=== PATIENT | male | born 2000 | race Caucasian/White ===

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

== ENCOUNTER → 2018-01-08 13:01 | Emergency (ER) | payer SELFPAY ==
--- NOTE | 2018-01-08 13:47 | ED ---
Psychiatric Complaint - HPI Summary HPI Summary: This patient is a 17 year old M presenting to [facility] with a chief complaint of bizarre behavior since just [employer]. Was standing in the middle of the road near [facility], drinking soda, hanging out, he always does that, every day. States it is not thrill seeking. 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 Denies SI, HI, Im not like that. Smokes marijuana, cigarettes, denies street drugs. Pt drank 1 [employer], not heavy on drinking. He endorses hallucinations at times, but none right now. Endorses paranoid delusions. - History Of Current Complaint Chief Complaint: EDMentalHealth Time Seen by Provider: 01/08/18 13:37 Hx Obtained From: Patient Onset/Duration: Sudden Onset Timing: Constant Severity Initially: Moderate Severity Currently: Mild Character: Manic Aggravating Factor(s): Nothing Alleviating Factor(s): Nothing Associated Signs And Symptoms: Positive: Confused Related History: Positive For: Prior Psychiatric Issues Has Suicidal: Denies: Thoughts - Allergies/Home Medications Allergies/Adverse Reactions: Allergies Allergy/AdvReac Type Severity Reaction Status Date / Time No Known Allergies Allergy Verified 12/17/15 12:42 PMH/Surg Hx/FS Hx/Imm Hx Endocrine/Hematology History: Denies: Hx Diabetes Cardiovascular History: Denies: Hx Hypertension, Hx Pacemaker/ICD, Hx Valvular Heart Disease Sensory History: Reports: Hx Contacts or Glasses, Hx Vision Problem - patient reports nystagmus Denies: Hx Cataracts, Hx Deafness, Hx Hearing Aid, Hx Hearing Problem Opthamlomology History: Reports: Hx Contacts or Glasses, Hx Vision Problem - patient reports nystagmus Denies: Hx Cataracts EENT History: Denies: Hx Deafness Neurological History: Reports: Hx Headaches, Other Neuro Impairments/Disorders - Hx concussion Psychiatric History: Reports: Hx Anxiety, Hx Depression, Hx Panic Disorder - ANXIETY, Hx Post Traumatic Stress Disorder, Hx Community Mental Health Tx, Hx of Violent Episodes Against Others Denies: Hx Attention Deficit Hyperactivity Disorder, Hx Eating Disorder, Hx Inpatient Treatment, Hx Schizophrenia, Hx Bipolar Disorder, Hx Suicide Attempt, Hx Substance Abuse, Other Psychiatric Issues/Disorders - Surgical History Surgery Procedure, Year, and Place: none Infectious Disease History: No Infectious Disease History: Denies: Traveled Outside the [place] in Last 30 Days - Family History Known Family History: Positive: None, Other - Pancreatic cancer Father Negative: Hypertension, Diabetes - Social History Alcohol Use: Occasionally Hx Substance Use: Yes Substance Use Type: Reports: Marijuana Hx Tobacco Use: Yes Smoking Status (MU): Current Some Day Smoker Type: Cigarettes Have You Smoked in the Last Year: No Review of Systems Negative: Fever Psychological: Other - hallucinations, poor insight, latencies Negative: Other - SI, HI All Other Systems Reviewed And Are Negative: Yes Physical Exam - Summary Physical Exam Summary: Appearance: Well appearing, no pain distress Skin: warm, dry, reflects adequate perfusion Head/face: normal Eyes: EOMI, ANDREW ENT: normal Neck: supple, non-tender Respiratory: CTA, breath sounds present Cardiovascular: RRR, pulses symmetrical Abdomen: non-tender, soft Bowel Sounds: present Musculoskeletal: normal, strength/ROM intact Neuro: sensory motor intact, A&Ox3, Poor insight, poor judgement, detachment, latencies, tangential thinking Triage Information Reviewed: Yes Vital Signs Reviewed: Yes Diagnostics - Laboratory Result Diagrams: 01/08/18 13:56 01/08/18 13:56 Lab Statement: Any lab studies that have been ordered have been reviewed, and results considered in the medical decision making process. - EKG 1413 Cardiac Rate: Bradycardia - 52 EKG Rhythm: Sinus Bradycardia ST Segment: Normal EKG Interpretation: Short UT, no delta wave, nl axis, artifact in leads II, III Course/Dx - Course Course Of Treatment: Patient noted to have significant latencies and a bizarre affect on exam. Medical evaluation was performed including laboratories and found to be stable for mental health evaluation. Crisis evaluation was initiated and it was elected the patient be held over. He was signed out to the oncoming ER physician in stable condition. - Differential Dx/Clinical Impression Provider Diagnosis: Mood disorder Discharge - Sign-Out/Discharge Documenting (check all that apply): Sign-Out Patient Signing out patient TO: Landon Méndez - psych hold - Discharge Plan Condition: Stable Referrals: No Primary Care Phys,NOPCP [Primary Care Provider] - - Billing Disposition and Condition Condition: STABLE
[2018-01-08 14:23] LABS: ABS Basophils 0 10^3/ul (0-0.2); ABS Eosinophils 0 10^3/ul (0-0.6); ABS Lymphocytes 1.5 10^3/ul (1.0-4.8); ABS Monocytes 0.4 10^3/ul (0-0.8); ABS Neutrophils 4.6 10^3/ul (1.5-7.7); ABS Nucleated RBC 0 10^3/ul; Eosinophil % 0.7 % (0-6); Hematocrit 43 % (42-52); Hemoglobin 14.8 g/dl (14.0-18.0); Lymphocyte % 23.1 % (25-47); Mean Corpuscular HGB Conc 34 g/dl (31-36); Mean Corpuscular Hemoglobin 31 pg (27-31); Mean Corpuscular Volume 91 fL (80-94); Mean Platelet Volume 8.7 um3 (7.4-10.4); Nucleated Red Blood Cells % 0.1; Platelet Count 199 10^3/ul (150-450); Red Blood Count 4.79 10^6/ul (4.00-5.40); Red Cell Distribution Width 13 % (10.5-15); White Blood Count 6.7 10^3/ul (3.5-10.8)
[2018-01-08 14:41] LABS: EGFR Non-African American 117.7 (>60)
[2018-01-08 14:56] LABS: Urine Appearance Clear; Urine Blood Negative (Negative); Urine Color Yellow; Urine Ketones Negative (Negative); Urine Protein Negative (Negative); Urine Specific Gravity 1.025 (1.010-1.030); Urine Urobilinogen Negative (Negative)
--- NOTE | 2018-01-09 08:45 | PN ---
ED Flex Patient Progress Note Date of Service: 01/08/18 Subjective: This is a 17 year-old M who is pending admission to [facility] / transfer to another psychiatric facility / discharge to home / or being observed secondary to mood disorder. Pt. examined in F3 around 0820. He is pacing around room, watching TV. He states he is eating and sleeping well. Offers no complaints. Objective: Vitals: Most recent vital signs documented below. General NAD,. Laboratory: Current laboratory results documented below. Assessment: Pending placement, our BHU is full. Plan: Pending psychiatric or medical consultation to observe / transfer / admit / discharge will follow up daily . Vital Signs Temp Pulse Resp BP Pulse Ox 97.9 F 58 16 108/69 100 01/09/18 08:25 01/09/18 08:25 01/09/18 08:25 01/09/18 08:25 01/09/18 08:25 Lab Results - Entire Visit 01/08/18 01/08/18 01/08/18 14:31 14:31 13:56 WBC RBC Hgb Hct MCV MCH MCHC RDW Plt Count MPV Neut % (Auto) Lymph % (Auto) Gem % (Auto) Eos % (Auto) Baso % (Auto) Absolute Neuts (auto) Absolute Lymphs (auto) Absolute Monos (auto) Absolute Eos (auto) Absolute Basos (auto) Absolute Nucleated RBC Nucleated RBC % Sodium 141 Potassium 4.0 Chloride 108 Carbon Dioxide 26 Anion Gap 7 BUN 15 Creatinine 0.84 Est GFR ( Amer) 142.4 Est GFR (Non-Af Amer) 117.7 BUN/Creatinine Ratio 17.9 Glucose 85 Calcium 9.5 Total Bilirubin 0.70 AST 24 ALT 17 Alkaline Phosphatase 148 H Total Creatine Kinase 193 Total Protein 6.6 Albumin 4.3 Globulin 2.3 Albumin/Globulin Ratio 1.9 TSH 0.55 Urine Color Yellow Urine Appearance Clear Urine pH 6.0 Ur Specific Wittman 1.025 Urine Protein Negative Urine Ketones Negative Urine Blood Negative Urine Nitrate Negative Urine Bilirubin Negative Urine Urobilinogen Negative Ur Leukocyte Esterase Negative Urine Glucose Negative Salicylates < 2.50 Urine Opiates Screen None detected Acetaminophen < 15 Ur Barbiturates Screen None detected Ur Phencyclidine Scrn None detected Ur Amphetamines Screen None detected U Benzodiazepines Scrn None detected Urine Cocaine Screen None detected U Cannabinoids Screen Presumptive positive A Serum Alcohol < 10 01/08/18 13:56 WBC 6.7 RBC 4.79 Hgb 14.8 Hct 43 MCV 91 MCH 31 MCHC 34 RDW 13 Plt Count 199 MPV 8.7 Neut % (Auto) 69.2 Lymph % (Auto) 23.1 L Gem % (Auto) 6.4 Eos % (Auto) 0.7 Baso % (Auto) 0.6 Absolute Neuts (auto) 4.6 Absolute Lymphs (auto) 1.5 Absolute Monos (auto) 0.4 Absolute Eos (auto) 0 Absolute Basos (auto) 0 Absolute Nucleated RBC 0 Nucleated RBC % 0.1 Sodium Potassium Chloride Carbon Dioxide Anion Gap BUN Creatinine Est GFR ( Amer) Est GFR (Non-Af Amer) BUN/Creatinine Ratio Glucose Calcium Total Bilirubin AST ALT Alkaline Phosphatase Total Creatine Kinase Total Protein Albumin Globulin Albumin/Globulin Ratio TSH Urine Color Urine Appearance Urine pH Ur Specific Wittman Urine Protein Urine Ketones Urine Blood Urine Nitrate Urine Bilirubin Urine Urobilinogen Ur Leukocyte Esterase Urine Glucose Salicylates Urine Opiates Screen Acetaminophen Ur Barbiturates Screen Ur Phencyclidine Scrn Ur Amphetamines Screen U Benzodiazepines Scrn Urine Cocaine Screen U Cannabinoids Screen Serum Alcohol
--- NOTE | 2018-01-09 10:55 | ED ---
Progress - Progress Note Progress Note: This pt was signed out by Dr. Méndez awaiting diagnosis and disposition. The mental health evaluation was performed by Dr. Chen who deemed the pt stable to be discharged home with a Dx of depressive disorder - Consult/PCP Time Called: 15:15 Course/Dx - Course Course Of Treatment: Patient noted to have significant latencies and a bizarre affect on exam. Medical evaluation was performed including laboratories and found to be stable for mental health evaluation. Crisis evaluation was initiated and it was elected the patient be held over. He was signed out to the [facility] ER physician in stable condition. - Diagnoses Provider Diagnoses: Depressive disorder, Mood disorder Discharge - Sign-Out/Discharge Documenting (check all that apply): Patient Departure - Discharge - Discharge Plan Condition: Stable Disposition: HOME Patient Education Materials: Depression (ED) Referrals: No Primary Care Phys,NOPCP [Primary Care Provider] - Additional Instructions: Per completion of a mental health evaluation, you are cleared for release and do not require inpatient psychiatric hospitalization at this time. Please go to nearest emergency room or call 911 if safety concerns arise or condition worsens. Important Phone Numbers: [facility] ph:[phone] Suicide Prevention and Crisis Services ph:[phone] National Suicide Prevention Lifeline ph:[phone]- ZHFO (5076) [facility] ph:[phone] Alcoholics Anonymous ph: [facility] ph:[phone] [employer] ph:[phone] Pt is to follow up Wednesday morning by calling [facility] at . Pt should return to ED if needed. Pt father is aware of the discharge and will provide support for patient in the community. - Billing Disposition and Condition Condition: STABLE Disposition: Home
[2018-01-09 11:41] VITALS: BP 119/57
== END | disposition home or self-care (01) ==
LOC: ED 13:01
DX: F39 Unspecified mood [affective] disorder (principal); R00.1 Bradycardia, unspecified; F17.210 Nicotine dependence, cigarettes, uncomplicated
CPT/HCPCS: 36415; 80053; 80307; 80320; 80329; 81003; 82550; 84443; 85025; 93005; 99284; G0480

== ENCOUNTER 2018-01-10 16:22 | Emergency (ER) | payer SELFPAY ==
[2018-01-10 17:11] LABS: ABS Basophils 0 10^3/ul (0-0.2); ABS Eosinophils 0 10^3/ul (0-0.6); ABS Lymphocytes 1.7 10^3/ul (1.0-4.8); ABS Monocytes 0.6 10^3/ul (0-0.8); ABS Neutrophils 4.5 10^3/ul (1.5-7.7); ABS Nucleated RBC 0 10^3/ul; Eosinophil % 0.4 % (0-6); Hematocrit 45 % (42-52); Hemoglobin 15.8 g/dl (14.0-18.0); Lymphocyte % 25.2 % (25-47); Mean Corpuscular HGB Conc 35 g/dl (31-36); Mean Corpuscular Hemoglobin 31 pg (27-31); Mean Corpuscular Volume 90 fL (80-94); Mean Platelet Volume 8.4 um3 (7.4-10.4); Nucleated Red Blood Cells % 0; Platelet Count 232 10^3/ul (150-450); Red Blood Count 5.03 10^6/ul (4.00-5.40); Red Cell Distribution Width 13 % (10.5-15); White Blood Count 6.9 10^3/ul (3.5-10.8)
[2018-01-10 17:28] LABS: EGFR Non-African American 98.5 (>60)
[2018-01-10] MEDS ORDERED: LORazepam TAB(*) 1 MG PO ONE (18:34)
--- NOTE | 2018-01-10 19:42 | ED ---
Psychiatric Complaint - HPI Summary HPI Summary: This is Marely Salazar, documenting for attending Fredy Muñoz MD. Pt is a 17 y/o M BIBA when he was found laying on the ground very paranoid. He believes there are people out to get him and kill him. He tried to jump over a ledge and scraped his abdomen. Was here in ED through the weekend when he was found standing in traffic outside of [facility]. He is not sure if he has been drinking alcohol. Used marijuana 2 days ago but cannot recall if he used it today. Claims to have been "hanging out with [employer]." - History Of Current Complaint Chief Complaint: EDMentalHealth Time Seen by Provider: 01/10/18 16:40 Hx Obtained From: Patient Onset/Duration: Lasting Days, Still Present Severity Currently: Mild - rated 2/10 pain during triage Associated Signs And Symptoms: Positive: Confused, Paranoid Behavior Related History: Positive For: Prior Psychiatric Issues - Allergies/Home Medications Allergies/Adverse Reactions: Allergies Allergy/AdvReac Type Severity Reaction Status Date / Time No Known Allergies Allergy Verified 01/08/18 20:24 PMH/Surg Hx/FS Hx/Imm Hx Endocrine/Hematology History: Denies: Hx Diabetes Cardiovascular History: Denies: Hx Hypertension, Hx Pacemaker/ICD, Hx Valvular Heart Disease Sensory History: Reports: Hx Contacts or Glasses, Hx Vision Problem - patient reports nystagmus Denies: Hx Cataracts, Hx Deafness, Hx Hearing Aid, Hx Hearing Problem Opthamlomology History: Reports: Hx Contacts or Glasses, Hx Vision Problem - patient reports nystagmus Denies: Hx Cataracts Neurological History: Reports: Hx Headaches, Other Neuro Impairments/Disorders - Hx concussion Psychiatric History: Reports: Hx Anxiety, Hx Depression, Hx Panic Disorder - ANXIETY, Hx Post Traumatic Stress Disorder, Hx Community Mental Health Tx, Hx of Violent Episodes Against Others Denies: Hx Attention Deficit Hyperactivity Disorder, Hx Eating Disorder, Hx Inpatient Treatment, Hx Schizophrenia, Hx Bipolar Disorder, Hx Suicide Attempt, Hx Substance Abuse, Other Psychiatric Issues/Disorders - Surgical History Surgery Procedure, Year, and Place: none Infectious Disease History: No Infectious Disease History: Denies: Traveled Outside the [place] in Last 30 Days - Family History Known Family History: Positive: Other - Pancreatic cancer Father Negative: Hypertension, Diabetes - Social History Alcohol Use: Occasionally Hx Substance Use: Yes Substance Use Type: Reports: Marijuana Hx Tobacco Use: Yes Smoking Status (MU): Current Some Day Smoker Type: Cigarettes Have You Smoked in the Last Year: No Review of Systems Positive: Other - Abrasion on abdomen Positive: Other - Paranoid All Other Systems Reviewed And Are Negative: Yes Physical Exam - Summary Physical Exam Summary: Appearance: Well appearing, no pain distress Skin: warm, dry, reflects adequate perfusion Head/face: normal Eyes: EOMI, ANDREW ENT: normal Neck: supple, non-tender Respiratory: CTA, breath sounds present Cardiovascular: RRR, pulses symmetrical Abdomen: soft, Abrasion on abdomen no abdominal tenderness Bowel Sounds: present Musculoskeletal: normal, strength/ROM intact Neuro: sensory motor intact, alert and oriented x3, mild MR, latencies Psych: paranoias Triage Information Reviewed: Yes Vital Signs On Initial Exam: Initial Vitals Temp Pulse Resp BP Pulse Ox 98.0 F 88 15 120/60 100 01/10/18 17:23 01/10/18 17:23 01/10/18 17:23 01/10/18 17:23 01/10/18 17:23 Vital Signs Reviewed: Yes Diagnostics - Vital Signs Vital Signs Temp Pulse Resp BP Pulse Ox 01/10/18 17:23 98.0 F 88 15 120/60 100 - Laboratory Lab Results: Lab Results 01/10/18 01/10/18 Range/Units 17:02 17:02 WBC 6.9 (3.5-10.8) 10^3/ul RBC 5.03 (4.00-5.40) 10^6/ul Hgb 15.8 (14.0-18.0) g/dl Hct 45 (42-52) % MCV 90 (80-94) fL MCH 31 (27-31) pg MCHC 35 (31-36) g/dl RDW 13 (10.5-15) % Plt Count 232 (150-450) 10^3/ul MPV 8.4 (7.4-10.4) um3 Neut % (Auto) 65.4 (38-83) % Lymph % (Auto) 25.2 (25-47) % Ritchie % (Auto) 8.4 H (0-7) % Eos % (Auto) 0.4 (0-6) % Baso % (Auto) 0.6 (0-2) % Absolute Neuts (auto) 4.5 (1.5-7.7) 10^3/ul Absolute Lymphs (auto) 1.7 (1.0-4.8) 10^3/ul Absolute Monos (auto) 0.6 (0-0.8) 10^3/ul Absolute Eos (auto) 0 (0-0.6) 10^3/ul Absolute Basos (auto) 0 (0-0.2) 10^3/ul Absolute Nucleated RBC 0 10^3/ul Nucleated RBC % 0 Sodium 139 (135-145) mmol/L Potassium 3.7 (3.5-5.0) mmol/L Chloride 104 (101-111) mmol/L Carbon Dioxide 24 (22-32) mmol/L Anion Gap 11 (2-11) mmol/L BUN 18 (6-24) mg/dL Creatinine 0.98 (0.67-1.17) mg/dL Est GFR ( Amer) 119.2 (>60) Est GFR (Non-Af Amer) 98.5 (>60) BUN/Creatinine Ratio 18.4 (8-20) Glucose 105 H (70-100) mg/dL Calcium 10.1 (8.6-10.3) mg/dL Total Bilirubin 1.40 H (0.2-1.0) mg/dL AST 28 (13-39) U/L ALT 19 (7-52) U/L Alkaline Phosphatase 126 H (34-104) U/L Total Protein 7.4 (6.4-8.9) g/dL Albumin 4.8 (3.2-5.2) g/dL Globulin 2.6 (2-4) g/dL Albumin/Globulin Ratio 1.8 (1-3) TSH 1.22 (0.34-5.60) mcIU/mL Salicylates < 2.50 (<30) mg/dL Acetaminophen < 15 mcg/mL Serum Alcohol < 10 (<10) mg/dL Result Diagrams: 01/10/18 17:02 01/10/18 17:02 Lab Statement: Any lab studies that have been ordered have been reviewed, and results considered in the medical decision making process. - EKG 1657 Cardiac Rate: NL - 71 bpm EKG Rhythm: Sinus Rhythm ST Segment: Normal EKG Interpretation: normal axis Course/Dx - Course Course Of Treatment: Patient was here through the weekend and was seen by mental health and cleared. He is now expressing paranoias as well as latencies noted previously. Concern for acute psychosis. Patient cleared for mental health evaluation is pending disposition by them. He is signed out to oncoming ER physician. - Differential Dx/Clinical Impression Provider Diagnosis: Acute psychosis Discharge - Sign-Out/Discharge Documenting (check all that apply): Sign-Out Patient Signing out patient TO: Landon Méndez - Discharge Plan Condition: Stable Referrals: Sharon Domínguez DO [Primary Care Provider] - - Billing Disposition and Condition Condition: STABLE
[2018-01-10 20:27] LABS: Urine Appearance Turbid; Urine Blood Negative (Negative); Urine Color Yellow; Urine Ketones Negative (Negative); Urine Protein Negative (Negative); Urine Specific Gravity 1.025 (1.010-1.030); Urine Urobilinogen Negative (Negative)
[2018-01-10 21:56] VITALS: BP 117/64
--- NOTE | 2018-01-11 05:13 | ED ---
Progress - Progress Note Progress Note: This is christel Lozoya documenting for attending physician Landon Méndez M.D. 2200: MHE consulted with Dr. Méndez, wanting to discharge Pt. Dr. Méndez agreed with plan to discharge. - Consult/PCP Time Called: 18:30 Course/Dx - Course Course Of Treatment: Patient was here through the weekend and was seen by mental health and cleared. He is now expressing paranoias as well as latencies noted previously. Concern for acute psychosis. Patient cleared for mental health evaluation is pending disposition by them. He is signed out to oncoming ER physician. - Diagnoses Provider Diagnoses: Acute psychosis Discharge - Sign-Out/Discharge Documenting (check all that apply): Patient Departure - Discharge Plan Condition: Stable Disposition: HOME Patient Education Materials: Mood Disorders (ED) Referrals: [facility] [Outside] Sharon Domínguez DO [Primary Care Provider] - - Billing Disposition and Condition Condition: STABLE Disposition: Home
== END 2018-01-10 22:02 | disposition home or self-care (01) ==
LOC: ED 16:22
DX: F29 Unspecified psychosis not due to a substance or known physiological condition (principal); F17.210 Nicotine dependence, cigarettes, uncomplicated
CPT/HCPCS: 36415; 80053; 80307; 80320; 80329; 81003; 84443; 85025; 93005; 99285; G0480

== ENCOUNTER 2018-01-16 08:43 | Emergency (ER) | payer SELFPAY ==
[2018-01-16 09:25] LABS: ABS Basophils 0.1 10^3/ul (0-0.2); ABS Eosinophils 0 10^3/ul (0-0.6); ABS Lymphocytes 1.6 10^3/ul (1.0-4.8); ABS Monocytes 0.3 10^3/ul (0-0.8); ABS Neutrophils 4.5 10^3/ul (1.5-7.7); ABS Nucleated RBC 0 10^3/ul; Eosinophil % 0.6 % (0-6); Hematocrit 44 % (42-52); Hemoglobin 15.1 g/dl (14.0-18.0); Mean Corpuscular HGB Conc 34 g/dl (31-36); Mean Corpuscular Hemoglobin 31 pg (27-31); Mean Corpuscular Volume 90 fL (80-94); Mean Platelet Volume 7.9 um3 (7.4-10.4); Nucleated Red Blood Cells % 0; Platelet Count 216 10^3/ul (150-450); Red Blood Count 4.87 10^6/ul (4.00-5.40); Red Cell Distribution Width 13 % (10.5-15); White Blood Count 6.5 10^3/ul (3.5-10.8)
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
[2018-01-16 09:43] LABS: EGFR Non-African American 126.4 (>60)
[2018-01-16 11:54] LABS: Urine Appearance Clear; Urine Blood Negative (Negative); Urine Color Yellow; Urine Ketones Negative (Negative); Urine Protein Negative (Negative); Urine Specific Gravity 1.019 (1.010-1.030); Urine Urobilinogen Negative (Negative)
--- NOTE | 2018-01-16 21:03 | ED ---
Progress - Progress Note Progress Note: This is scribe Cassius Toussaint documenting for attending Dr. Torres Lopez MD. Dr. Muniz reassessed the patient for HI and SI. Patient denies any SI or HI and wants to go to school tomorrow. Patient will be discharged with a diagnosis of depression. Patient will be going to his aunt's house in [facility]. Pt is to follow up with [facility] or with family/friends as needed. It was noted that the patient has previously been evaluated at [facility] ED for MHE. - Consult/PCP Time Called: 10:01 Course/Dx - Diagnoses Provider Diagnoses: Depression - Provider Notifications Discussed Care Of Patient With: Janene Muniz Time Discussed With Above Provider: 21:00 Instructed by Provider To: Other - Recommends discharging patient. Discharge - Sign-Out/Discharge Documenting (check all that apply): Patient Departure - DISCHARGE - Discharge Plan Condition: Stable Disposition: HOME Patient Education Materials: Depression (ED) Referrals: Sharon Domínguez DO [Primary Care Provider] - Additional Instructions: Pt is to follow up with [facility] or with family/friends as needed. RETURN TO ED FOR ANY NEW OR WORSENING SYMPTOMS.
[2018-01-16 22:10] VITALS: BP 132/81
== END 2018-01-16 22:08 | disposition home or self-care (01) ==
LOC: ED 08:43
DX: F39 Unspecified mood [affective] disorder (principal); F32.9 Major depressive disorder, single episode, unspecified; F19.10 Other psychoactive substance abuse, uncomplicated; F17.210 Nicotine dependence, cigarettes, uncomplicated
CPT/HCPCS: 36415; 80053; 80307; 80320; 80329; 81003; 83605; 84443; 85025; 87040; 99285; G0480

== ENCOUNTER 2018-02-13 04:14 | Emergency (ER) | payer MEDICAID ==
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
[2018-02-13 06:04] LABS: ABS Basophils 0.1 10^3/ul (0-0.2); ABS Eosinophils 0.1 10^3/ul (0-0.6); ABS Lymphocytes 2.6 10^3/ul (1.0-4.8); ABS Monocytes 0.6 10^3/ul (0-0.8); ABS Neutrophils 4.2 10^3/ul (1.5-7.7); ABS Nucleated RBC 0 10^3/ul; Eosinophil % 1.8 % (0-6); Hematocrit 41 % (42-52); Hemoglobin 14.2 g/dl (14.0-18.0); Lymphocyte % 34.2 % (25-47); Mean Corpuscular HGB Conc 35 g/dl (31-36); Mean Corpuscular Hemoglobin 32 pg (27-31); Mean Corpuscular Volume 90 fL (80-94); Mean Platelet Volume 8.4 um3 (7.4-10.4); Nucleated Red Blood Cells % 0.1; Platelet Count 189 10^3/ul (150-450); Red Blood Count 4.49 10^6/ul (4.00-5.40); Red Cell Distribution Width 14 % (10.5-15); White Blood Count 7.6 10^3/ul (3.5-10.8)
[2018-02-13 06:26] LABS: EGFR Non-African American 140.6 (>60)
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
[2018-02-13 13:56] LABS: Urine Appearance Clear; Urine Blood Negative (Negative); Urine Color Yellow; Urine Ketones Negative (Negative); Urine Protein Negative (Negative); Urine Specific Gravity 1.027 (1.010-1.030); Urine Urobilinogen Negative (Negative)
--- NOTE | 2018-02-13 15:33 | PN ---
ED Flex Patient Progress Note Date of Service: 02/13/18 Subjective: This is a 17 year-old M who is pending admission to [facility] / transfer to another psychiatric facility / discharge to home / or being observed secondary to SI and hallucinations. Pt. examined aroudn 1520 in F1. He is sleeping comfortably. Objective: Vitals: Most recent vital signs documented below. General NAD Laboratory: Current laboratory results documented below. Assessment: Pending MHE. Plan: Pending psychiatric or medical consultation to observe / transfer / admit / discharge will follow up daily . Vital Signs Temp Pulse Resp BP Pulse Ox 98.6 F 64 18 109/75 99 02/13/18 13:27 02/13/18 13:27 02/13/18 13:27 02/13/18 13:27 02/13/18 13:27 Lab Results - Entire Visit 02/13/18 02/13/18 02/13/18 13:21 13:21 05:50 WBC RBC Hgb Hct MCV MCH MCHC RDW Plt Count MPV Neut % (Auto) Lymph % (Auto) [place] % (Auto) Eos % (Auto) Baso % (Auto) Absolute Neuts (auto) Absolute Lymphs (auto) Absolute Monos (auto) Absolute Eos (auto) Absolute Basos (auto) Absolute Nucleated RBC Nucleated RBC % Sodium 140 Potassium 3.8 Chloride 110 Carbon Dioxide 25 Anion Gap 5 BUN 14 Creatinine 0.72 Est GFR ( Amer) 170.2 Est GFR (Non-Af Amer) 140.6 BUN/Creatinine Ratio 19.4 Glucose 106 H Calcium 9.1 Total Bilirubin 0.50 AST 29 ALT 23 Alkaline Phosphatase 179 H Total Protein 6.3 L Albumin 4.1 Globulin 2.2 Albumin/Globulin Ratio 1.9 TSH 2.07 Urine Color Yellow Urine Appearance Clear Urine pH 5.0 Ur Specific [place] 1.027 Urine Protein Negative Urine Ketones Negative Urine Blood Negative Urine Nitrate Negative Urine Bilirubin Negative Urine Urobilinogen Negative Ur Leukocyte Esterase Negative Urine Glucose Negative Salicylates < 2.50 Urine Opiates Screen None detected Acetaminophen < 15 Ur Barbiturates Screen None detected Ur Phencyclidine Scrn None detected Ur Amphetamines Screen None detected U Benzodiazepines Scrn None detected Urine Cocaine Screen None detected U Cannabinoids Screen Presumptive positive A Serum Alcohol < 10 02/13/18 05:50 WBC 7.6 RBC 4.49 Hgb 14.2 Hct 41 L MCV 90 MCH 32 H MCHC 35 RDW 14 Plt Count 189 MPV 8.4 Neut % (Auto) 55.7 Lymph % (Auto) 34.2 [place] % (Auto) 7.5 H Eos % (Auto) 1.8 Baso % (Auto) 0.8 Absolute Neuts (auto) 4.2 Absolute Lymphs (auto) 2.6 Absolute Monos (auto) 0.6 Absolute Eos (auto) 0.1 Absolute Basos (auto) 0.1 Absolute Nucleated RBC 0 Nucleated RBC % 0.1 Sodium Potassium Chloride Carbon Dioxide Anion Gap BUN Creatinine Est GFR ( Amer) Est GFR (Non-Af Amer) BUN/Creatinine Ratio Glucose Calcium Total Bilirubin AST ALT Alkaline Phosphatase Total Protein Albumin Globulin Albumin/Globulin Ratio TSH Urine Color Urine Appearance Urine pH Ur Specific [place] Urine Protein Urine Ketones Urine Blood Urine Nitrate Urine Bilirubin Urine Urobilinogen Ur Leukocyte Esterase Urine Glucose Salicylates Urine Opiates Screen Acetaminophen Ur Barbiturates Screen Ur Phencyclidine Scrn Ur Amphetamines Screen U Benzodiazepines Scrn Urine Cocaine Screen U Cannabinoids Screen Serum Alcohol
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
[2018-02-13 20:07] VITALS: BP 117/60
--- NOTE | 2018-02-13 20:11 | ED ---
Progress - Progress Note Progress Note: This is Alessandro kearney documenting for attending physician Fredy Muñoz MD. This patient was signed out from Dr. Vargas awaiting MHE. After MHE by Dr. Muniz the patient was deemed stable to be discharged with outpatient follow up. - Consult/PCP Time Called: 15:00 Course/Dx - Course Course Of Treatment: This patient was signed out from Dr. Vargas awaiting MHE. After MHE by Dr. Muniz the patient was deemed stable to be discharged with outpatient follow up. - Diagnoses Provider Diagnoses: Adjustment disorder Discharge - Sign-Out/Discharge Documenting (check all that apply): Patient Departure - Discharge Plan Condition: Stable Disposition: HOME Patient Education Materials: Mood Disorders (ED) Referrals: [facility] [Outside] (please follow up with [facility] as soon as possible) Sharon Domínguez, DO [Primary Care Provider] - Attestation Statement Scribe Attestation: This is christel Krause documenting for attending Fredy Muñoz MD. User Type: Provider with Scribe Provider Attestation: The documentation recorded by the scribe accurately reflects the service I personally performed and the decisions made by me.
== END 2018-02-13 21:13 | disposition home or self-care (01) ==
LOC: ED 04:14
DX: R45.850 Homicidal ideations (principal); F43.22 Adjustment disorder with anxiety; R00.1 Bradycardia, unspecified; Z72.0 Tobacco use
CPT/HCPCS: 36415; 70450; 80053; 80307; 80320; 80329; 81003; 84443; 85025; 93005; 99284; G0480

== ENCOUNTER 2018-03-16 08:57 | Inpatient (IN) | payer MEDICAID ==
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
[2018-03-16 09:49] LABS: ABS Basophils 0.1 10^3/ul (0-0.2); ABS Eosinophils 0.1 10^3/ul (0-0.6); ABS Lymphocytes 2.1 10^3/ul (1.0-4.8); ABS Monocytes 0.5 10^3/ul (0-0.8); ABS Nucleated RBC 0 10^3/ul; Hematocrit 42 % (42-52); Hemoglobin 14.6 g/dl (14.0-18.0); Lymphocyte % 31.3 % (25-47); Mean Corpuscular HGB Conc 35 g/dl (31-36); Mean Corpuscular Hemoglobin 32 pg (27-31); Mean Corpuscular Volume 91 fL (80-94); Mean Platelet Volume 8.1 um3 (7.4-10.4); Nucleated Red Blood Cells % 0.1; Platelet Count 200 10^3/ul (150-450); Red Blood Count 4.63 10^6/ul (4.00-5.40); Red Cell Distribution Width 14 % (10.5-15); White Blood Count 6.8 10^3/ul (3.5-10.8)
[2018-03-16 10:18] LABS: EGFR Non-African American 147.7 (>60)
[2018-03-16] MEDS ORDERED: Acetaminophen TAB* 325 MG PO PRN (14:14)
[2018-03-16] MEDS ORDERED: Al Hydrox/Mg Hydrox/Simet LIQ* 30 ML UDC PO PRN (14:14)
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
--- NOTE | 2018-03-18 13:52 | PN ---
Subjective - Subjective Date of Service: 03/18/18 Service Type: 90964 Hosp care 25 min moderate complexity Subjective: patient is distractible and hyperactive. He reports spending the past month in [place] to avoid being home as he does not like that his mom is letting her ex- boyfriend stay there. He states that he has been smoking marijuana that was laced with jonathon, as well as synthetic MJ. He reports MJ generally "makes me calm" and that he did not like the effect of K2 (synthetic MJ). He continues to endorse conflicting desire to complete HS. he states that he purposefully "kicked out" of [employer] school in order to return to "normal high school." However , he is having difficulty completing work due to behaviors and needing an aide. He states that he is unsure if he will be able to graduate and blames the school for various reasons. He states his sister is the only one in this generation from his family to graduate high school. He continues to romanticize gang behavior. He speaks of violent plans if needed in a defensive manner. Objective - Appearance Appearance: Thin Framed Dysmorphic Features: No Hygiene: Normal Grooming: Well Kept - Behavior Psychomotor Activities: Abnormal-Increased - hyperactive Exhibits Abnormal Movement: Yes - Attitude and Relatedness Attitude and Relatedness: Child Like Eye Contact: Poor - Speech Quality: Pressured Latencies: Normal Quantity: Terse - Mood Patient's Decription of Mood: "Fine" - Affect Observed Affect: Good Affect Consistent with: Euthymia - Thought Process Patient's Thought Process: Loose Associations Thought Content: Yes Passive Wish, Yes Paranoid Ideation, No Suicidal Planning, No Homicidal Ideation - Sensorium Experiencing Hallucinations: No, Sensorium is Clear Type of Hallucinations: Visual: No, Auditory: No, Command: No - Level of Consciousness Level of Consciousness: Alert Orientation: Yes Intact, Yes Orientated to Time, Yes Orientated to Place, Yes Orientated to Person - Impulse Control Impulse Control: Impaired - Insight and Judgement Insight and Judgement: Impaired - Group Participation Particating in Group Activities: Yes - Medication Management Medication Management Adherence: Yes Assessment - Assessment Merits Inpatient Hospitalization: For Immediate Safety, For Stabilization, To Initiate Treatment Inpatient DSM-V Dx: F90.2 - ADHD, combined type Clinical Impression: 17yo white male who presented to ED after eloping from [facility], being found by state troopers and endorsed suicidal ideation. He has a history of concussions, intellectual disability and oppositional defiant d/o. He clearly has ADHD, as well. Apparently, he has been [place] and hasnt been home consistently. He is engaging in both marijuana and synthetic MJ. He merits hospitalization for immediate safety and stabilization. Plan - Plan Treatment Plan: Name: ISATU GODFREY Birthdate: 2000 [id number] continue acute intensive psychiatric treatment. may decrease to q30min and allow staff pass/computer use for school work. I am conservatively starting clonidine due to prior trials of SSRIs and risk for abuse of stimulants. discharge planning to include family and outpatient providers per patient consent. Continued Medication Management: Start Medication Medications: Current Medications Acetaminophen (Tylenol Tab*) 650 mg PO Q4H PRN PRN Reason: for pain; or Temp >101 F Al Hydrox/Mg Hydrox/Simethicone (Maalox Plus*) 30 ml PO Q4H PRN PRN Reason: INDIGESTION Clonidine HCl (Catapres Tab*) 0.1 mg PO BID RENÉE - Discharge Plan Discharge Plan: Outpatient Follow Up [facility]
[2018-03-18] MEDS ORDERED: cloNIDine TAB* 0.1 MG PO SCH (14:00)
[2018-03-18] MEDS: cloNIDine TAB* 0.1 MG PO SCH ×2 (15:55→21:40)
[2018-03-18 18:38] LABS: Urine Appearance Clear; Urine Blood Negative (Negative); Urine Color Straw; Urine Ketones Negative (Negative); Urine Protein Negative (Negative); Urine Specific Gravity 1.005 (1.010-1.030); Urine Urobilinogen Negative (Negative)
[2018-03-19] MEDS: cloNIDine TAB* 0.1 MG PO SCH ×2 (09:25→21:27)
[2018-03-20] MEDS: cloNIDine TAB* 0.1 MG PO SCH ×2 (09:23→20:43)
--- NOTE | 2018-03-20 18:38 | PN ---
Subjective - Subjective Date of Service: 03/20/18 Service Type: [id number] Hosp care 15 min low complexity Subjective: Ian reports of improved mood and no suicidal thoughts. Says starting meds helped. No side effects from meds. Engaged in unit activities and interacting with peer fine. Objective - Appearance Appearance: Healthy Appearing Dysmorphic Features: No Hygiene: Normal Grooming: Well Kept - Behavior Psychomotor Activities: Normal Exhibits Abnormal Movement: No - Attitude and Relatedness Attitude and Relatedness: Appropriate - Speech Quality: Unpressured Latencies: Normal Quantity: Appropriate - Mood Patient's Decription of Mood: "Good" - Affect Observed Affect: Good Affect Consistent with: Euthymia - Thought Process Patient's Thought Process: Coherent, Goal Directed Thought Content: No Passive Wish, No Suicidal Planning, No Homicidal Ideation, No Paranoid Ideation - Sensorium Experiencing Hallucinations: No, Sensorium is Clear Type of Hallucinations: Visual: No, Auditory: No, Command: No - Level of Consciousness Level of Consciousness: Alert Orientation: Yes Intact, Yes Orientated to Time, Yes Orientated to Place, Yes Orientated to Person - Impulse Control Impulse Control: Intact - Insight and Judgement Insight and Judgement: Fair - Group Participation Particating in Group Activities: Yes - Medication Management Medication Management Adherence: Yes Assessment - Assessment Merits Inpatient Hospitalization: Consolidate Improvements, Pending Safe DC Plan Inpatient DSM-V Dx: F90.2 - ADHD, combined type Clinical Impression: 17yo white male who presented to ED after eloping from [facility], being found by state troopers and endorsed suicidal ideation. He has a history of concussions, intellectual disability and oppositional defiant d/o. He clearly has ADHD, as well. Apparently, he has been [place] and hasnt been home consistently. He is engaging in both marijuana and synthetic MJ. He merits hospitalization for immediate safety and stabilization. Plan - Plan Treatment Plan: Name: IAN Grace EPIFANIO Birthdate: 2000 [id number] Continued Medication Management: Continue Outpt Medication Medications: Current Medications Acetaminophen (Tylenol Tab*) 650 mg PO Q4H PRN PRN Reason: for pain; or Temp >101 F Al Hydrox/Mg Hydrox/Simethicone (Maalox Plus*) 30 ml PO Q4H PRN PRN Reason: INDIGESTION Clonidine HCl (Catapres Tab*) 0.1 mg PO BID RENÉE Last Admin: 03/20/18 09:23 Dose: 0.1 mg - Discharge Plan Discharge Plan: Outpatient Follow Up Outpatient Program: [facility]
[2018-03-21] MEDS ORDERED: Nicotine GUM* 2 MG PO PRN (08:41)
[2018-03-21] MEDS ORDERED: Nicotine Inhaler* 10 MG AMP INH PRN (08:41)
[2018-03-21] MEDS ORDERED: Mouth Piece, Nicotine* 1 EACH CARTRIDGE INH PRN (08:41)
[2018-03-21] MEDS ORDERED: Nicotine PATCH 7 MG/24 HR* PATCH TRANSDERM SCH (09:00)
[2018-03-21 09:20] VITALS: BP 99/48
[2018-03-21] MEDS: cloNIDine TAB* 0.1 MG PO SCH (09:22)
[2018-03-21] MEDS ORDERED: Nicotine Patch Removal NOTE PATCH OFF SCH (21:00)
--- NOTE | 2018-03-23 02:43 | DS ---
CC: [facility]; [facility]; Sharon Domínguez DO * DISCHARGE SUMMARY: DATE OF ADMISSION: 03/16/18 DATE OF DISCHARGE: 03/21/18 SUPERVISING PSYCHIATRIST: Dr. Balaji Stewart.* (DICTATED BY LUIS ARIAS NP) DISCHARGE DIAGNOSES: Major depressive disorder, attention deficit hyperactivity disorder combined presentation. CONDITION AT THE TIME OF DISCHARGE: Improved. The patient is no longer voicing suicidal or homicidal ideations. He has denied these ideations since being admitted. The patient reports that he made suicidal statements in order to be able to leave school last week. The patient has been in behavioral control on the unit. He is hyperactive, yet redirectable. He is easily influenced by male peers. The current environment on the [facility] is placing the patient at risk for learning increased maladaptive behaviors. The patient also reports eagerness to return to high school and anxiety about not being able to get his homework done while in the hospital. The patient's mother has been contacted and is agreeable to discharge plan including obtaining the patient today. MENTAL STATUS EXAM: The patient is a young, white male with thin frame, who is wearing casual clothing and he is adequately groomed. He has multiple layers of clothing and is wearing those in various arrangements, for example he is wearing a sweatshirt wrapped around his waist and wearing hospital socks on his arms as fingerless gloves. He is euthymic with full range of affect. The speech is loud at times, but redirectable, otherwise normal volume and pattern. Eye contact is good. Thought process is circumstantial and goal directed. Thought content is negative for suicidal ideation, passive wish. He denies HI or . He denies auditory or visual hallucinations. Insight and judgment are fair. Fund of knowledge is limited and intellect is estimated to be low average. INSTRUCTIONS GIVEN TO THE PATIENT: A. Medications: Clonidine 0.1 mg p.o. b.i.d. for ADHD and anxiety. B. Diet is regular. C. Activity: Ambulation as tolerated. Tobacco cessation was declined by the patient. There are no pending labs or diagnostic studies. D. Followup care: The patient was referred to [facility] for therapy and medication management. He will resume services with his caser up, Bryan Mata, through the [facility] and he will follow up with primary care provider, Dr. Domínguez, on 04/07/18. E. Substance use followup: The patient declines need for substance use treatment. He has given inconsistent reports about substance use and may likely be overinflating use. HOSPITAL COURSE: Part A: Reason for admission: Please see history and physical from 03/16/18. The patient presented to the emergency department via due to suicidal and homicidal statements. He had eloped from [employer] [employer] and found by state police, he expressed suicidal ideation to the [employer] and was brought to the emergency department. Collateral from his mother denoted that the patient has been spending days at a time in [place], likely with the homeless population. Part B: Psychiatric treatment rendered: The patient was admitted to Adult Behavioral Services Unit on 39 status. Code status is full. He was placed on a 15-minute check for safety and encouraged to participate in supportive milieu, individual sessions with staff, and psychoeducational groups. He was cooperative with treatment and engaged in conversations with staff and providers. He was interactive with peers and as stated above easily influenced by psychotic and manic peers. He initially reported being opposed to psychopharmacology, but later agreed to discuss options. He had a history of increased agitation with serotonergic medications. Due to his vulnerability in the community, we refrained from starting stimulants. The patient was started on clonidine for both anxiety and ADHD. He tolerated this well. He reported mild improvement in concentration. As stated above, he was calm and in behavioral control. He denies suicidal ideations. He recanted his statements that he had made to state police and stated that he said these in order to not have to return to school setting that day. He has been avoiding school and home. He has a history of learning disability and special education. As can be typical for some white male, he has a very inflated ego and makes violent threats to compensate for low self esteem. The patient was decreased to 30-minute observation and allowed to participate in staff pass. He was pleasant on approach and adherent to the unit routine. Social work discussed collateral information with his mother and she reported much improvement in his behavior while on the mental health unit. Social work and mother also discussed the patient's IEP, which was very distressing to him. The patient expresses frustration that he is expected to complete [employer] learning on the web at the elementary school. He expresses desire to be in the high school and interact with same age peers. LABORATORY DATA: CBC was grossly unremarkable. MCH was high at 32, mono percentage 7.8. CMP noted a high BUN and creatinine ratio of 21.7. Alkaline phosphatase high at 159. Creatinine kinase 277. This was likely due to the patient's running from the school and dehydration. Hemoglobin A1c normal at 5.4 , lipid panel within normal limits, TSH normal at 0.72. Urinalysis within normal limits. His toxicology was negative for salicylate, acetaminophen, alcohol and his urine drug screen was negative, which is inconsistent as the patient reported daily marijuana use. On the day of discharge, as stated above, the patient reported eagerness to be discharged to return home and school. LUIS ARIAS, DESMOND [id number]/CPS #: [id number] ANDREW
== END 2018-03-21 17:25 | disposition home or self-care (01) | DRG 758 ==
LOC: ED 08:57 → BSU 14:28
PROVIDERS: ADMIT Psychiatry & Neurology Psychiatry; ATTEND Psychiatry & Neurology Psychiatry
DX: F90.2 Attention-deficit hyperactivity disorder, combined type (principal); R45.851 Suicidal ideations; F17.210 Nicotine dependence, cigarettes, uncomplicated; F12.90 Cannabis use, unspecified, uncomplicated; Z81.8 Family history of other mental and behavioral disorders
CPT/HCPCS: 36415; 80053; 80061; 80307; 80320; 80329; 81003; 82550; 83036; 84443; 85025; 99284; A9270-GY; G0480

== ENCOUNTER 2019-05-06 14:23 | Emergency (ER) | payer OTHER ==
[2019-05-06] MEDS ORDERED: Acetaminophen TAB* 325 MG PO ONE (14:51)
--- NOTE | 2019-05-06 14:54 | ED ---
Syncope/Near Syncope - HPI Summary HPI Summary: Patient is a 18-year-old male who presents emergency department after a syncopal episode that occurred about 45 minutes prior to arrival. Patient states he was in his usual health today and was taking a shower before work. Patient states when the shower he started to feel dizzy and lightheaded. Family states they heard a loud thud from the other room and went into the bathroom to find him lying in the tub. Patient's mother states she shook him and he woke. Mother states there was no seizure activity. Patient was initially complaining of a headache. Patient states he did not eat breakfast this morning. He denies chest pain, shortness breath, abdominal pain, recent illness. He does complain of right elbow pain with abrasions from fall. Past medical history of anxiety and takes clonidine without change in dose. Patient denies drug or alcohol use. Symptoms are moderate in severity. No current modifying factors. - History Of Current Complaint Chief Complaint: EDSyncope Time Seen by Provider: 05/06/19 14:35 Hx Obtained From: Patient, Family/Inspector Dials - Allergies/Home Medications Allergies/Adverse Reactions: Allergies Allergy/AdvReac Type Severity Reaction Status Date / Time No Known Allergies Allergy Verified 05/06/19 14:28 PMH/Surg Hx/FS Hx/Imm Hx Previously Healthy: Yes Endocrine/Hematology History: Denies: Hx Diabetes Cardiovascular History: Denies: Hx Hypertension, Hx Pacemaker/ICD, Hx Valvular Heart Disease Sensory History: Reports: Hx Contacts or Glasses, Hx Vision Problem - patient reports nystagmus Denies: Hx Cataracts, Hx Deafness, Hx Hearing Aid, Hx Hearing Problem Opthamlomology History: Reports: Hx Contacts or Glasses, Hx Vision Problem - patient reports nystagmus Denies: Hx Cataracts Neurological History: Reports: Hx Headaches, Other Neuro Impairments/Disorders - Hx concussion Psychiatric History: Reports: Hx Anxiety, Hx Depression, Hx Panic Disorder - ANXIETY, Hx Post Traumatic Stress Disorder, Hx Community Mental Health Tx, Hx of Violent Episodes Against Others Denies: Hx Attention Deficit Hyperactivity Disorder, Hx Eating Disorder, Hx Inpatient Treatment, Hx Schizophrenia, Hx Bipolar Disorder, Hx Suicide Attempt, Hx Substance Abuse, Other Psychiatric Issues/Disorders - Surgical History Surgery Procedure, Year, and Place: none Infectious Disease History: No Infectious Disease History: Denies: Traveled Outside the [place] in Last 30 Days - Family History Known Family History: Positive: Other - Pancreatic cancer Father Negative: Hypertension, Diabetes - Social History Occupation: Employed Full-time Lives: With Family Alcohol Use: Occasionally Hx Substance Use: Yes Substance Use Type: Reports: Marijuana, Synthetic Drugs, Other - K-2 Hx Tobacco Use: Yes Smoking Status (MU): Current Every Day Smoker Type: Cigarettes Have You Smoked in the Last Year: No Review of Systems Constitutional: Negative Negative: Fever Eyes: Negative ENT: Negative Cardiovascular: Negative Negative: Palpitations, Chest Pain Respiratory: Negative Negative: Shortness Of Breath, Cough Gastrointestinal: Negative Positive: Other - right elbow pain Positive: Bruising Positive: Headache, Syncope. Negative: Weakness, Paresthesia, Numbness, Slurred Speech All Other Systems Reviewed And Are Negative: Yes Physical Exam Triage Information Reviewed: Yes Vital Signs On Initial Exam: Initial Vitals Temp Pulse Resp BP Pulse Ox 98.4 F 54 14 99/46 96 05/06/19 14:25 05/06/19 14:25 05/06/19 14:25 05/06/19 14:25 05/06/19 14:25 Vital Signs Reviewed: Yes Appearance: Positive: Well-Appearing - Patient sitting up in bed in no acute distress. Answers questions appropriately. Family present. Skin: Positive: Warm, Dry Head/Face: Positive: Normal Head/Face Inspection. Negative: Cephalohematoma Eyes: Positive: Normal, EOMI, ANDREW, Conjunctiva Clear Neck: Positive: Supple, Nontender Respiratory/Lung Sounds: Positive: Clear to Auscultation, Breath Sounds Present Cardiovascular: Positive: Normal, RRR Abdomen Description: Positive: Nontender, Soft Musculoskeletal: Positive: Other - Abrasions and ecchymosis to right forearm and pain to right elbow on palpation. Neurological: Positive: Normal, Sensory/Motor Intact, Alert, Oriented to Person Place, Time, CN Intact II-III Psychiatric: Positive: Affect/Mood Appropriate - Blanca Coma Scale Best Eye Response: 4 - Spontaneous Best Motor Response: 6 - Obeys Commands Best Verbal Response: 5 - Oriented Coma Scale Total: 15 Procedures - Sedation Patient Received Moderate/Deep Sedation with Procedure: No Diagnostics - Vital Signs Vital Signs Temp Pulse Resp BP Pulse Ox 05/06/19 14:25 98.4 F 54 14 99/46 96 - Laboratory Result Diagrams: 05/06/19 15:00 05/06/19 15:00 Lab Statement: Any lab studies that have been ordered have been reviewed, and results considered in the medical decision making process. Course/Dx Course Of Treatment: Pt. presenting after syncopal episode. He is afebrile. Hypotensive at 99/46, HR 54bpm. Pt. has had numerous past ER visits and his HR is always noted to be in the 40's-60's. Pt. given food and drink. ECG done at 1519 shows a sinus bradycardia of 39bm, borderline pr inerval, no delta wave, similar to prior tracing. Labs unremarkable. Orthostatic VS normal. On re-exam pt. feeling better without complaints. Suspect vasovagal syncope. Will dc home. Advised to increase fluids and rest. Advised to eat well balanced diet. To f.u with pcp in 2-3 days and return to er if sxs change or worsen. Pt. and family understand and agree with plan. - Diagnoses Differential Diagnosis/HQI/PQRI: Positive: Dysrhythmia, Hypoglycemia, Hypovolemia, Metabolic Reaction, Seizure, Vasovagal Episode Provider Diagnoses: Vasovagal syncope Discharge ED - Sign-Out/Discharge Documenting (check all that apply): Patient Departure - Discharge Plan Condition: Improved Disposition: HOME Patient Education Materials: Syncope (ED) Forms: *Work Release Referrals: Sharon Domínguez DO [Primary Care Provider] - Additional Instructions: Call PCP on Wednesday for a close follow up appointment Increase fluids Eat small frequent meals Ice and rest elbow Tylenol or motrin for pain as directed Return to ER if symptoms change or worsen - Billing Disposition and Condition Condition: IMPROVED Disposition: Home - Attestation Statements Provider Attestation: I was available for consultation for this patient. I did not evaluate the patient or participate in any medical decision making or disposition decisions unless I am specifically named in the chart as having consulted on the patient. If I have consulted on the patient, please see my own ED note on the patient encounter. Anju Castanon MD
[2019-05-06 15:12] LABS: ABS Basophils 0.1 10^3/ul (0-0.2); ABS Eosinophils 0.1 10^3/ul (0-0.6); ABS Lymphocytes 1.5 10^3/ul (1.0-4.8); ABS Monocytes 0.4 10^3/ul (0-0.8); ABS Neutrophils 2.7 10^3/ul (1.5-7.7); Eosinophil % 1.2 %; Hematocrit 46 % (42-52); Hemoglobin 15.9 g/dL (14.0-18.0); Mean Corpuscular HGB Conc 35 g/dL (31-36); Mean Corpuscular Hemoglobin 32 pg (27-31); Mean Corpuscular Volume 91 fL (80-94); Mean Platelet Volume 8.4 fL (7.4-10.4); Nucleated Red Blood Cells % 0.1; Platelet Count 173 10^3/uL (150-450); Red Blood Count 5.05 10^6 /uL (4.18-5.48); Red Cell Distribution Width 13 % (10-15); White Blood Count 4.8 10^3/uL (3.5-10.8)
[2019-05-06 15:29] LABS: Albumin 4.6 g/dL (3.2-5.2); BUN/Creatinine Ratio 15.5 (8-20); Calcium 9.8 mg/dL (8.6-10.3); EGFR Non-African American 116.5 (>60); Globulin 2.3 g/dL (2-4); Magnesium 1.9 mg/dL (1.9-2.7); Potassium 3.9 mmol/L (3.5-5.0); Total Bilirubin 0.8 mg/dL (0.2-1.0); Total Protein 6.9 g/dL (6.4-8.9)
[2019-05-06 15:44] LABS: TSH (Thyroid Stimulating Horm) 0.63 mcIU/mL (0.34-5.60)
[2019-05-06 16:56] VITALS: BP 93/42
== END 2019-05-06 16:55 | disposition home or self-care (01) ==
LOC: ED 14:23
DX: R55 Syncope and collapse (principal); F41.9 Anxiety disorder, unspecified; F32.9 Major depressive disorder, single episode, unspecified; F43.10 Post-traumatic stress disorder, unspecified; F17.210 Nicotine dependence, cigarettes, uncomplicated
CPT/HCPCS: 36415; 80053; 83735; 84443; 85025; 93005; 99282; A9270-GY

== ENCOUNTER 2021-06-16 20:21 | Inpatient (IN) ==
[2021-06-16 22:01] LABS: ABS Eosinophils 0.1 10^3/ul (0-0.6); ABS Monocytes 0.8 10^3/ul (0-0.8); Eosinophil % 0.5 %; Hematocrit 45 % (42-52); Hemoglobin 15.5 g/dL (14.0-18.0); Lymphocyte % 18.2 %; Mean Corpuscular HGB Conc 34 g/dL (31-36); Mean Corpuscular Hemoglobin 32 pg (27-31); Mean Corpuscular Volume 93 fL (80-94); Mean Platelet Volume 7.9 fL (7.4-10.4); Platelet Count 272 10^3/uL (150-450); Red Blood Count 4.84 10^6 /uL (4.18-5.48); Red Cell Distribution Width 13 % (10-15); White Blood Count 10.9 10^3/uL (3.5-10.8)
[2021-06-16 22:20] LABS: ALT 23 U/L (7-52); AST 26 U/L (13-39); Albumin 4.4 g/dL (3.2-5.2); Albumin/Globulin Ratio 1.9 (1-3); Alkaline Phosphatase 124 U/L (35-149); Anion Gap 7 mmol/L (2-11); Blood Urea Nitrogen 12 mg/dL (6-24); CO2 Carbon Dioxide 26 mmol/L (22-32); Calcium 9.6 mg/dL (8.6-10.3); Chloride 106 mmol/L (101-111); Globulin 2.3 g/dL (2-4); Glucose 110 mg/dL (70-100); Potassium 3.8 mmol/L (3.5-5.0); Sodium 139 mmol/L (135-145); Total Protein 6.7 g/dL (6.4-8.9); eGFR CKD-EPI 126.4 (>60)
[2021-06-16 22:26] LABS: Urine Appearance Turbid; Urine Bilirubin Negative (Negative); Urine Blood Negative (Negative); Urine Color Yellow; Urine Glucose Negative (Negative); Urine Ketones Negative (Negative); Urine Nitrite Negative (Negative); Urine Protein Negative (Negative); Urine Urobilinogen Negative (Negative)
[2021-06-16 22:37] LABS: Urine Benzodiazepine Screen None Detected (None Detect); Urine Cannabinoids Screen Presumptive Positive (None Detect); Urine Opiates Screen None Detected (None Detect)
[2021-06-16 23:56] LABS: Acetaminophen < 15 mcg/mL; Alcohol, S < 13 mg/dL (<13); Salicylate < 2.50 mg/dL (<30)
[2021-06-17 00:11] LABS: TSH Ultra Thyroid Stim Horm 0.66 mcIU/mL (0.34-5.60)
[2021-06-17] MEDS ORDERED: Al Hydrox/Mg Hydrox/Simet LIQ 30 ML UDC PO PRN (06:35)
[2021-06-17] MEDS: Nicotine PATCH 14 MG/24 HR PATCH TRANSDERM SCH (11:44)
[2021-06-17] MEDS: Vitamin THERAPEUTIC TAB PO SCH (11:44)
[2021-06-17] MEDS: Nicotine GUM 2MG FRUIT FLAVOR PO PRN ×2 (16:08→20:08)
[2021-06-18 08:18] LABS: HDL Cholesterol 54.5 mg/dL
[2021-06-18] MEDS: Vitamin THERAPEUTIC TAB PO SCH (09:32)
[2021-06-18] MEDS: Nicotine PATCH 14 MG/24 HR PATCH TRANSDERM SCH (09:32)
[2021-06-18] MEDS: Nicotine GUM 2MG FRUIT FLAVOR PO PRN ×2 (09:45→16:20)
[2021-06-19] MEDS: Nicotine GUM 2MG FRUIT FLAVOR PO PRN (08:31)
[2021-06-19] MEDS: Vitamin THERAPEUTIC TAB PO SCH (08:31)
[2021-06-19] MEDS: Nicotine PATCH 14 MG/24 HR PATCH TRANSDERM SCH (08:31)
[2021-06-19] MEDS ORDERED: COVID-19 VACCINE, MRNA(MODERNA)/PF 100 MCG/0.5 ML IM ONE (15:00)
[2021-06-20] MEDS: Vitamin THERAPEUTIC TAB PO SCH (08:52)
[2021-06-20] MEDS: Nicotine GUM 2MG FRUIT FLAVOR PO PRN ×2 (08:53→11:49)
[2021-06-20 09:09] VITALS: BP 149/73
[2021-06-20] MEDS: Nicotine PATCH 14 MG/24 HR PATCH TRANSDERM SCH (09:40)
== END 2021-06-20 16:55 | disposition home or self-care (01) | DRG 753 ==
LOC: ED 20:21 → BSU 06-17 05:22
PROVIDERS: ADMIT Psychiatry & Neurology Psychiatry; ATTEND Psychiatry & Neurology Psychiatry